=== PATIENT | male | born 1955 | race Caucasian/White ===

== ENCOUNTER → 2025-05-23 | Outpatient (REF) | payer MEDICARE | LOC: US 14:19 | PROVIDERS: ATTEND Urology | DX: N43.3 Hydrocele, unspecified (principal) | CPT/HCPCS: 76870; 93976 ==

== ENCOUNTER 2025-07-16 05:55 | Observation (INO) | payer MEDICARE ==
[2025-07-09 09:41] LABS: BASOPHILS % 0.4 % (0.0-1.0); EOSINOPHILS % 2.1 % (0.0-6.0); LYMPHOCYTES % 27.0 % (18.0-39.1); MONOCYTES % 9.9 % (4.4-11.3); NEUTROPHILS % 60.4 % (38.7-80.0); RED CELL DISTRIBUTION WIDTH 12.7 % (11.7-14.4)
[2025-07-09 10:04] LABS: EST GLOMERULAR FILTRATION RATE 79.0 ML/MIN (>=60)
[~2025-07-16] VITALS: Ht 188 cm; Wt 111.1 kg
[~2025-07-16 05:55] MED LIST: ASPIRIN81 MG PO; FISH OIL 1,0001 EAC7 PO
[2025-07-16] MEDS ORDERED: LIDOCAINE HCL 2% LOCAL INJ 5 ML SDV VIAL INJ ONE (08:33)
[2025-07-16] MEDS ORDERED: FENTANYL CITRATE/PF 100MCG/2 ML INJ ONE ×2 (08:33→11:36)
[2025-07-16] MEDS ORDERED: PROPOFOL IV EMULSION 10 MG/ML 20 ML VIAL ONE (08:33)
[2025-07-16] MEDS ORDERED: ONDANSETRON HCL INJ 2MG/ML 2ML 2 MG/ML VIAL ONE (09:11)
[2025-07-16] MEDS ORDERED: DEXAMETHASONE SOD PHOS INJ 4 MG/ML SDV ONE (09:11)
[2025-07-16] MEDS ORDERED: ACETAMINOPHEN 1000 MG/100 ML 0 ML IV ONE (09:14)
[2025-07-16] MEDS ORDERED: KETOROLAC TROMETHAMINE 30 MG/ML VIAL ONE (11:36)
[2025-07-16] MEDS: HYDROCODONE/APAP 7.5MG-325MG 1 EA TAB ONE ×2 (12:00→16:34)
[2025-07-16 20:00] VITALS: BP 119/74; PULSE 63; RESP 17; TEMP 98.3; O2SAT 98
[2025-07-16 21:00] VITALS: BP 119/74; PULSE 63; RESP 17; TEMP 98.3; O2SAT 98
[2025-07-16 23:39] VITALS: BP 111/68; PULSE 63; RESP 17; TEMP 98.7; O2SAT 97
[2025-07-16] MEDS: HYDROCODONE/APAP 7.5MG-325MG 1 EA TAB PO PRN (23:50)
[2025-07-17] MEDS: LACTATED RINGER'S 1,000 ML ONE (00:28)
[2025-07-17 04:00] VITALS: BP 128/74; PULSE 57; RESP 20; TEMP 98.1; O2SAT 99
[2025-07-17 09:02] VITALS: BP 145/93; PULSE 63; RESP 19; TEMP 97.9; O2SAT 100
[2025-07-17 10:50] VITALS: BP 145/93; PULSE 63; RESP 19; TEMP 97.9; O2SAT 100
[2025-07-17 12:31] VITALS: BP 122/87; PULSE 62; RESP 20; TEMP 98.7; O2SAT 100
== END 2025-07-17 14:07 | disposition home or self-care (01) ==
LOC: OR 05:55 → PACU V 15:57 → MED/SURG3 20:04
PROVIDERS: ADMIT Surgery; ATTEND Surgery
DX: K40.90 Unilateral inguinal hernia, without obstruction or gangrene, not specified as recurrent (principal); I10 Essential (primary) hypertension; E66.01 Morbid (severe) obesity due to excess calories; Z68.31 Body mass index [BMI] 31.0-31.9, adult; K76.0 Fatty (change of) liver, not elsewhere classified; Z01.810 Encounter for preprocedural cardiovascular examination; Z01.812 Encounter for preprocedural laboratory examination; Z01.818 Encounter for other preprocedural examination
CPT/HCPCS: 36415; 49525; 71046; 80048; 85025; 93005; C1781; G0378 ×2; J1100; J1885; J2003; J2405; J2704; J3010; J7121